=== PATIENT | male | born 1995 | race American Indian/Alaskan Native ===

== ENCOUNTER 2017-09-12 08:13 | Emergency (ER) | payer SELFPAY ==
[2017-09-12 09:40] LABS: Basophils % (Auto) 0.2 % (0.0-1.8); Eosinophils # (Auto) 0.2 K/mm3 (0.0-0.4); Eosinophils % (Auto) 2.8 % (0.0-4.3); Hematocrit 36.4 % (35.5-45.6); Hemoglobin 12.1 gm/dl (11.8-15.2); Lymphocytes # (Auto) 1.5 K/mm3 (1.2-5.4); Lymphocytes % (Auto) 20.8 % (13.4-35.0); Mean Corpuscular HGB Conc 33 % (32-34); Mean Corpuscular Hemoglobin 30 pg (28-32); Mean Corpuscular Volume 89 fl (84-94); Monocytes # (Auto) 0.9 K/mm3 (0.0-0.8); Platelet Count 225 K/mm3 (140-440); Red Blood Count 4.07 M/mm3 (3.65-5.03); Red Cell Distribution Width 14.5 % (13.2-15.2)
[2017-09-12 09:48] LABS: Alanine Aminotransferase 29 units/L (7-56); BUN/Creatinine Ratio 20; Blood Urea Nitrogen 10 mg/dL (9-20); Calcium 8.9 mg/dL (8.4-10.2); Hemolysis Index 5
[2017-09-12 10:16] LABS: Bilirubin,Urine NEG (Negative); Blood,Urine NEG (Negative); Color,Urine Yellow (Yellow); Mucus,Urine FEW /HPF; Nitrite,Urine NEG (Negative); Protein,Urine <15 mg/dL mg/dL (Negative)
[2017-09-12] MEDS ORDERED: CARAFATE PO ONE (11:24)
[2017-09-12] MEDS ORDERED: PEPCID PO ONE (11:24)
[2017-09-12] MEDS ORDERED: ALUM-MAG HYDROX-SIMETH 200-200-20MG/5ML PO ONE (11:24)
--- NOTE | 2017-09-12 11:25 | Emergency Department Report ---
ED General Adult HPI - General Chief complaint: Extremity Injury, Upper Stated complaint: STAPH Time Seen by Provider: 09/12/17 11:18 Source: patient, RN notes reviewed, old records reviewed Mode of arrival: Ambulatory Limitations: No Limitations - History of Present Illness Initial comments: This is a 22-year-old genetic male identifies female, has a past medical history of HIV, noncompliant with highly active antiretroviral therapy, does not know CD4 count, does not know viral load, also previously on estrogen supplementation, noncompliant with that either. Presents to the ER with multiple complaints. First complaint is ulceration to left shoulder. It has been present for a few days. Will. It is constant. It does not radiate anywhere. It has no exacerbating or relieving factors with the exception of touch. Patient states complaint is epigastric pain that has been present for 4-5 days. It is achy. It increases with palpation and with consuming heavy and spicy foods. It does not radiate anywhere, and patient denies nausea, vomiting diarrhea. Patient denies lower abdominal pain, denies urinary symptoms. Patient also endorses shortness of breath. Patient denies chest pain. There is no leg pain, there is no leg swelling, patient endorses no pulmonary embolus or DVT risk factors. -: Gradual Location: abdomen, left, upper extremity Radiation: non-radiation Quality: other (as per history of present illness) Consistency: other (as per history of present illness) Improves with: other (as per history of present illness) Worsens with: other (history of present illness) Associated Symptoms: rash, shortness of breath. denies: confusion, chest pain, cough, diaphoresis, fever/chills, headaches, loss of appetite, malaise, nausea/ vomiting, syncope, weakness - Related Data Previous Rx's Medication Instructions Recorded Last Taken Type Permethrin 5% [Acticin 5% CREAM] 1 applicatio TP ONCE #1 tube 11/04/14 Unknown Rx Famotidine [Pepcid] 20 mg PO QDAY #30 tablet 09/12/17 Unknown Rx Mupirocin [Bactroban 2% CREAM] 1 applicatio TP BID #1 cream 09/12/17 Unknown Rx Allergies Allergy/AdvReac Type Severity Reaction Status Date / Time No Known Allergies Allergy Verified 11/04/14 07:38 ED Review of Systems ROS: Stated complaint: STAPH Other details as noted in HPI ED Past Medical Hx - Past Medical History Previous Medical History?: Yes Hx HIV: Yes Additional medical history: HIV positive and noncompliant with antivirals - Surgical History Past Surgical History?: No - Social History Smoking Status: Current Every Day Smoker Substance Use Type: Alcohol, Non Opiate Pain, Methamphetamines - Medications Home Medications: Home Medications Medication Instructions Recorded Confirmed Last Taken Type Permethrin 5% [Acticin 5% CREAM] 1 applicatio TP ONCE #1 tube 11/04/14 Unknown Rx Famotidine [Pepcid] 20 mg PO QDAY #30 tablet 09/12/17 Unknown Rx Mupirocin [Bactroban 2% CREAM] 1 applicatio TP BID #1 cream 09/12/17 Unknown Rx ED Physical Exam - General Limitations: No Limitations General appearance: alert, in no apparent distress - Head Head exam: Present: atraumatic, normocephalic - Eye Eye exam: Present: normal appearance, EOMI. Absent: nystagmus - ENT ENT exam: Present: normal exam, normal orophraynx, mucous membranes moist, normal external ear exam - Neck Neck exam: Present: normal inspection, full ROM - Respiratory Respiratory exam: Present: normal lung sounds bilaterally. Absent: respiratory distress, chest wall tenderness - Cardiovascular Cardiovascular Exam: Present: regular rate, normal rhythm, normal heart sounds. Absent: bradycardia, tachycardia, irregular rhythm, systolic murmur, diastolic murmur, rubs, gallop - GI/Abdominal GI/Abdominal exam: Present: soft, tenderness (there is epigastric tenderness. There is no rebound, guarding or peritoneal signs. There is no right upper quadrant tenderness. There is negative Resendiz sign. There is no right lower quadrant tenderness. There is negative objects time.), normal bowel sounds. Absent: distended, guarding, rebound, rigid, pulsatile mass - Rectal Rectal exam: Present: deferred - Extremities Exam Extremities exam: Present: full ROM, normal capillary refill, other (on the left shoulder there is a 2 x 2 centimeter ulceration. There is good granulation tissue. There is no surrounding redness, pus or streaking.). Absent: tenderness, pedal edema, joint swelling, calf tenderness - Back Exam Back exam: Present: normal inspection, full ROM. Absent: tenderness, CVA tenderness (R), paraspinal tenderness, vertebral tenderness - Neurological Exam Neurological exam: Present: alert, oriented X3, CN II-XII intact, normal gait, other (Extraocular movements intact. Tongue midline. No facial droop. Facial sensation intact to light touch in the V1, V2, V3 distribution bilaterally. 5 and 5 strength in 4 extremities.. Sensation is intact to light touch in 4 extremities.). Absent: motor sensory deficit - Psychiatric Psychiatric exam: Present: normal affect, normal mood - Skin Skin exam: Present: warm, rash ED Course Vital Signs 09/12/17 08:55 Temperature 98.5 F Pulse Rate 82 Respiratory 16 Rate Blood Pressure 122/57 O2 Sat by Pulse 99 Oximetry ED Medical Decision Making - Lab Data Result diagrams: 09/12/17 09:13 09/12/17 09:13 Vital Signs 09/12/17 08:55 Temperature 98.5 F Pulse Rate 82 Respiratory 16 Rate Blood Pressure 122/57 O2 Sat by Pulse 99 Oximetry Lab Results 09/12/17 09/12/17 09/12/17 Range/Units 09:13 09:13 09:59 WBC 7.2 (4.5-11.0) K/mm3 RBC 4.07 (3.65-5.03) M/mm3 Hgb 12.1 (11.8-15.2) gm/dl Hct 36.4 (35.5-45.6) % MCV 89 (84-94) fl MCH 30 (28-32) pg MCHC 33 (32-34) % RDW 14.5 (13.2-15.2) % Plt Count 225 (140-440) K/mm3 Lymph % (Auto) 20.8 (13.4-35.0) % [place] % (Auto) 13.0 H (0.0-7.3) % Eos % (Auto) 2.8 (0.0-4.3) % Baso % (Auto) 0.2 (0.0-1.8) % Lymph # 1.5 (1.2-5.4) K/mm3 [place] # 0.9 H (0.0-0.8) K/mm3 Eos # 0.2 (0.0-0.4) K/mm3 Baso # 0.0 (0.0-0.1) K/mm3 Seg Neutrophils % 63.2 (40.0-70.0) % Seg Neutrophils # 4.5 (1.8-7.7) K/mm3 Sodium 139 (137-145) mmol/L Potassium 4.0 (3.6-5.0) mmol/L Chloride 100.7 (98-107) mmol/L Carbon Dioxide 24 (22-30) mmol/L Anion Gap 18 mmol/L BUN 10 (9-20) mg/dL Creatinine 0.5 L (0.8-1.5) mg/dL Estimated GFR > 60 ml/min BUN/Creatinine Ratio 20 % Glucose 94 (75-100) mg/dL Calcium 8.9 (8.4-10.2) mg/dL Total Bilirubin 0.30 (0.1-1.2) mg/dL AST 23 (5-40) units/L ALT 29 (7-56) units/L Alkaline Phosphatase 88 (35-129) units/L Total Protein 7.7 (6.3-8.2) g/dL Albumin 4.0 (3.9-5) g/dL Albumin/Globulin Ratio 1.1 % Urine Color Yellow (Yellow) Urine Turbidity Clear (Clear) Urine pH 5.0 (5.0-7.0) Ur Specific [place] 1.028 (1.003-1.030) Urine Protein <15 mg/dl (Negative) mg/dL Urine Glucose (UA) Neg (Negative) mg/dL Urine Ketones Neg (Negative) mg/dL Urine Blood Neg (Negative) Urine Nitrite Neg (Negative) Urine Bilirubin Neg (Negative) Urine Urobilinogen 2.0 (<2.0) mg/dL Ur Leukocyte Esterase Neg (Negative) Urine WBC (Auto) 4.0 (0.0-6.0) /HPF Urine RBC (Auto) 1.0 (0.0-6.0) /HPF U Epithel Cells (Auto) 1.0 (0-13.0) /HPF Urine Mucus Few /HPF - EKG Data -: EKG Interpreted by Mi EKG shows normal: sinus rhythm Rate: normal - EKG Data When compared to previous EKG there are: previous EKG unavailable 09/12/17 12:15 Sinus, 88 bpm, normal axis, normal intervals, borderline high left ventricular voltage, not morphologically consistent with ST elevation myocardial infarction ; there is no prior EKG available for comparison. - Radiology Data Radiology results: report reviewed, image reviewed X-ray of the chest, interpreted by myself and radiology: No acute disease - Medical Decision Making Differential diagnosis, including not limited to: Left shoulder ulceration, left shoulder wound, pneumonia, GERD, gastritis, reflux, hiatal hernia, pneumothorax Assessment and plan: 22-year-old male who identifies as female, no pulmonary embolus or DVT risk factors, perc negative, low risk by well's criteria, with multiple complaints including nontraumatic left shoulder ulcer, epigastric abdominal pain and shortness of breath. The patient is afebrile with reassuring vital signs. On multiple reassessments in the department, patient is noted to be playing on a [employer] phone. He felt improved after symptomatic medication. X-ray of the chest is appropriate. EKG unremarkable. There does not appear to be an emergent condition at this time. Patient will be discharged with Bactroban and appropriate abdominal pain medication. Return precautions are reviewed. Critical care attestation.: If time is entered above; I have spent that time in minutes in the direct care of this critically ill patient, excluding procedure time. ED Disposition Clinical Impression: Epigastric abdominal pain, Wound of left shoulder Disposition: [id number] TO HOME OR SELFCARE Is pt being admited?: No Does the pt Need Aspirin: No Condition: Good Instructions: Acute Wound Care (ED), Diet for Ulcers and Gastritis (ED), Gastroesophageal Reflux Disease (ED) Additional Instructions: apply warm compresses to left shoulder as often as is needed. Avoid consumption of Motrin, ibuprofen, Naprosyn, Aleve. Follow-up with the health department or any of the listed infectious disease doctors as soon as possible to really initiate outpatient care for HIV. Take the pain medication as directed, follow up at the wound care center for left shoulder wound within the next 2 weeks. Return to the ER right away with new pain, worsened pain, migration of pain, fevers, chills, lethargy, irritability, projectile vomiting, confusion, change in mental status, inability to tolerate liquid feeds. Referrals: PRIMARY CAREMD [Primary Care Provider] - 3-5 Days [facility] [Outside] - 3-5 Days TIM BAKER MD [Staff Physician] - 3-5 Days KELIN GUTIERREZ MD [Staff Physician] - 3-5 Days [facility] [Outside] - 3-5 Days
--- NOTE | 2017-09-12 12:03 | XRay Report ---
ROUTINE CHEST, TWO VIEWS: HISTORY: Short of breath, epigastric pain. The trachea, heart, mediastinal contour, lung jasso and bony thorax are unremarkable. IMPRESSION: Unremarkable chest x-ray.
[2017-09-12 12:30] VITALS: BP 130/68
== END 2017-09-12 12:31 | disposition home or self-care (01) ==
LOC: ED 08:13
DX: S41.002A Unspecified open wound of left shoulder, initial encounter (principal); R10.13 Epigastric pain; F17.200 Nicotine dependence, unspecified, uncomplicated; F15.10 Other stimulant abuse, uncomplicated; X58.XXXA Exposure to other specified factors, initial encounter; Y93.89 Activity, other specified; Y92.89 Other specified places as the place of occurrence of the external cause; Y99.8 Other external cause status
CPT/HCPCS: 36415; 71046; 80053; 81001; 85025; 93005; 93010; 99284